=== PATIENT | male | born 1935 | race Caucasian/White ===

== ENCOUNTER 2018-01-08 14:33 | Observation (INO) | payer MEDICARE ==
[2018-01-08] MEDS ORDERED: Sodium Chloride 0.9% 1000 ML 1,000 ML IV STA ×2 (14:51→17:41)
--- NOTE | 2018-01-08 14:54 | ERPHSYRPT ---
- History of Present Illness Time Seen by Provider: 01/08/18 14:52 Source: patient Patient Subjective Stated Complaint: Patient states he started doing therapy at 1400 and was told by staff his blood pressure dropped. Triage Nursing Assessment: Patient brought into ER via therapy staff stating his b/p was low during his therapy session. Patient states he feels weak. Patient denies being lightheaded. Patient states he doesn't have much of an appepitie and hasn't ate in the past couple of days. Physician History: mild general weakness today during physical therapy, not dizzy, no pain, pt is ambulatory, fluent speech Allergies/Adverse Reactions: No Known Drug Allergies Allergy (Verified 12/20/17 10:56) Home Medications: Atorvastatin Calcium [Lipitor 20MG Tablet] 20 mg PO QHS 12/20/17 [History] Cholecalciferol (Vitamin D3) [Vitamin D3] 50,000 units PO WEEKLY 12/20/17 [ History] Ciprofloxacin HCl [Cipro] 500 mg PO BID 12/20/17 [History] Denosumab 60 mg [Prolia 60 mg Injection] 60 mg SQ Q6M 12/20/17 [History] Oxycodone HCl/Acetaminophen [Percocet 5-325 mg Tablet] 5 mg PO Q6H 12/20/17 [ History] Rivaroxaban 10 mg Tablet [Xarelto 10 mg Tablet] 10 mg PO DAILY 12/20/17 [ History] Sertraline HCl 50 mg [Zoloft 50 mg Tablet] 50 mg PO DAILY 12/20/17 [History] Hx Tetanus, Diphtheria Vaccination/Date Given: Yes Hx Influenza Vaccination/Date Given: Yes Hx Pneumococcal Vaccination/Date Given: No Immunizations Up to Date: Yes - Review of Systems Constitutional: No Fever Eyes: No Eye Redness Ears, Nose, & Throat: No Mouth Pain Respiratory: No Dyspnea Cardiac: No Chest Pain Abdominal/Gastrointestinal: No Abdominal Pain, No Vomiting Musculoskeletal: No Back Pain Neurological: No Dizziness, No Focal Weakness, No Speech Changes - Past Medical History Pertinent Past Medical History: No Neurological History: No Pertinent History ENT History: No Pertinent History Cardiac History: No Pertinent History, High Cholesterol Respiratory History: No Pertinent History Endocrine Medical History: No Pertinent History Musculoskeletal History: Fractures GI Medical History: No Pertinent History History: Other Psycho-Social History: Anxiety, Eating Disorders Male Reproductive Disorders: Prostate Cancer Other Medical History: radiation therapy for prostate cancer. - Past Surgical History Past Surgical History: Yes Neuro Surgical History: No Pertinent History Cardiac: No Pertinent History Respiratory: No Pertinent History Gastrointestinal: No Pertinent History Genitourinary: No Pertinent History Musculoskeletal: Orthopedic Surgery Male Surgical History: No Pertinent History Other Surgical History: hx of surgery on left wrist. Surgery on RLE for compund fracture. - Social History Smoking Status: Never smoker Exposure to second hand smoke: No Drug Use: none Patient Lives Alone: No - Nursing Vital Signs Nursing Vital Signs: Initial Vital Signs Temperature 97.1 F 01/08/18 14:39 Pulse Rate 83 01/08/18 14:39 Respiratory Rate 16 01/08/18 14:39 Blood Pressure 122/67 01/08/18 14:39 O2 Sat by Pulse Oximetry 100 01/08/18 14:39 Pain Scale Pain Intensity 0 - Physical Exam General Appearance: no apparent distress Eye Exam: PERRL/EOMI Ears, Nose, Throat Exam: moist mucous membranes Neck Exam: normal inspection Respiratory Exam: normal breath sounds Cardiovascular Exam: regular rate/rhythm Gastrointestinal/Abdomen Exam: soft, No tenderness Extremity Exam: pelvis stable Neurologic Exam: alert, oriented x 3, cooperative, normal mood/affect Skin Exam: warm, dry SpO2 Interpretation: normal SpO2: 100 Oxygen Delivery: Room Air - Course Nursing assessment & vital signs reviewed: Yes EKG Interpreted by Me: Other (nsr 78, rvh, no stemi) - Radiology Exams Chest X-ray Interpretation: Interpreted by me, No Pneumonia Ordered Tests: Active Orders 24 hr Category Date Time Status Shoemaking Finisher STAT Care 01/08/18 14:51 Active EKG-ER Only STAT Care 01/08/18 14:51 Active IV Insertion STAT Care 01/08/18 14:51 Active Orthostatic Vital Signs STAT Care 01/08/18 16:54 Active CHEST 1 VIEW (PORTABLE) Stat Exams 01/08/18 15:43 Completed LOWER EXTREMITY WO CONTRAST [CT] Stat Exams 01/08/18 17:44 Ordered BLOOD CULTURE Stat Lab 01/08/18 Received CBC W DIFF Stat Lab 01/08/18 15:28 Completed CMP Stat Lab 01/08/18 15:28 Completed CULTURE,URINE Stat Lab 01/08/18 16:51 Received Lactic Acid Stat Lab 01/08/18 16:30 Results Manual Differential NC Stat Lab 01/08/18 15:28 Completed TROPONIN Q3H Lab 01/08/18 15:28 Completed TROPONIN Q3H Lab 01/08/18 18:00 Ordered TROPONIN Q3H Lab 01/08/18 21:00 Ordered TROPONIN Q3H Lab 01/09/18 00:00 Ordered TROPONIN Q3H Lab 01/09/18 03:00 Ordered UA W/ MICROSCOPIC Stat Lab 01/08/18 16:51 Completed Transfer Order Routine Transfer 01/08/18 Ordered Medication Summary Generic Name Dose Route Start Last Admin Trade Name Freq PRN Reason Stop Dose Admin Sodium Chloride 1,000 mls @ 999 mls/hr 01/08/18 17:41 01/08/18 17:49 Sodium Chloride 0.9% 1000 Ml IV 01/08/18 18:41 999 mls/hr .Q1H1M STA Administration Vancomycin HCl 1 gm in 250 mls @ 167 mls/hr 01/08/18 17:42 01/08/18 17:55 Vancomycin 1gm/ Ns 250ml IV 01/08/18 19:11 167 mls/hr STAT ONE Administration Discontinued Medications Generic Name Dose Route Start Last Admin Trade Name Freq PRN Reason Stop Dose Admin Sodium Chloride 1,000 mls @ 999 mls/hr 01/08/18 14:51 01/08/18 15:35 Sodium Chloride 0.9% 1000 Ml IV 01/08/18 15:51 999 mls/hr .Q1H1M STA Administration Sodium Chloride Confirm 01/08/18 15:34 Sodium Chloride 0.9% 1000 Ml Administered 01/08/18 15:35 Dose 1,000 mls @ ud .ROUTE .STK-MED ONE Sodium Chloride Confirm 01/08/18 17:40 Sodium Chloride 0.9% 1000 Ml Administered 01/08/18 17:41 Dose 1,000 mls @ ud .ROUTE .STK-MED ONE Vancomycin HCl Confirm 01/08/18 17:54 Vancomycin 1gm/ Ns 250ml Administered 01/08/18 17:55 Dose 250 mls @ ud IV .STK-MED ONE Lab/Rad Data: Laboratory Result Diagrams 01/08/18 15:28 01/08/18 15:28 Laboratory Results 01/08/18 01/08/18 01/08/18 Range/Units 16:51 16:30 15:28 WBC (4.0-10.5) K/mm3 RBC (4.1-5.6) M/mm3 Hgb (12.5-18.0) gm/dl Hct (42-50) % MCV (78-100) fl MCH (26-32) pg MCHC (32-36) g/dl RDW (11.5-14.0) % Plt Count (150-450) K/mm3 MPV (6-9.5) fl Absolute Granulocytes (1.4-6.9) Segmented Neutrophils (36.-66.) % Band Neutrophils (0.0-2.0) % Lymphocytes (Manual) (24-44) % Monocytes (Manual) (0.0-12.0) % Hypochromia Toxic Granulation Platelet Estimate (NORMAL) RBC Morphology Poikilocytosis Anisocytosis Sodium (137-145) mmol/L Potassium (3.5-5.1) mmol/L Chloride (98-107) mmol/L Carbon Dioxide (22-30) mmol/L Anion Gap (5-15) MEQ/L BUN (9-20) mg/dL Creatinine (0.66-1.25) mg/dL Estimated GFR ML/MIN Glucose (74-106) mg/dL Lactic Acid 2.2 H (0.4-2.0) Calcium (8.4-10.2) mg/dL Total Bilirubin (0.2-1.3) mg/dL AST (17-59) U/L ALT (0-50) U/L Alkaline Phosphatase (38-126) U/L Troponin I < 0.012 (0.000-0.034) ng/mL Serum Total Protein (6.3-8.2) g/dL Albumin (3.5-5.0) g/dL Ur Collection Type CLEAN CATCH Urine Color YELLOW (YELLOW) Urine Appearance CLEAR (CLEAR) Urine pH 6.0 (5-6) Ur Specific [place] 1.020 (1.005-1.025) Urine Protein 30 (Negative) Urine Ketones SMALL (NEGATIVE) Urine Blood 250 (0-5) Rey/ul Urine Nitrite NEGATIVE (NEGATIVE) Urine Bilirubin NEGATIVE (NEGATIVE) Urine Urobilinogen NORMAL (0-1) mg/dL Ur Leukocyte Esterase NEGATIVE (NEGATIVE) Urine Microscopic RBC 15-25 (0-2) /HPF Urine Microscopic WBC 0-2 (0-5) /HPF Ur Epithelial Cells RARE (FEW) /HPF Urine Bacteria FEW (NEGATIVE) /HPF Hyaline Casts 0-2 (0-2) /LPF Urine Mucus MODERATE (NEGATIVE) /HPF Urine Culture Reflexed YES (NO) Urine Glucose NEGATIVE (NEGATIVE) mg/dL Specimen Received 01/08/18 1730 01/08/18 01/08/18 Range/Units 15:28 15:28 WBC 17.7 H (4.0-10.5) K/mm3 RBC 3.76 L (4.1-5.6) M/mm3 Hgb 10.1 L (12.5-18.0) gm/dl Hct 32.0 L (42-50) % MCV 85.1 (78-100) fl MCH 26.8 (26-32) pg MCHC 31.6 L (32-36) g/dl RDW 14.7 H (11.5-14.0) % Plt Count 500 H (150-450) K/mm3 MPV 9.3 (6-9.5) fl Absolute Granulocytes 14.66 H (1.4-6.9) Segmented Neutrophils 81 H (36.-66.) % Band Neutrophils 3 H (0.0-2.0) % Lymphocytes (Manual) 12 L (24-44) % Monocytes (Manual) 4 (0.0-12.0) % Hypochromia 1+ Toxic Granulation 2+ Platelet Estimate INCREASED (NORMAL) RBC Morphology ABNORMAL Poikilocytosis 1+ Anisocytosis 1+ Sodium 139 (137-145) mmol/L Potassium 3.4 L (3.5-5.1) mmol/L Chloride 102 (98-107) mmol/L Carbon Dioxide 25 (22-30) mmol/L Anion Gap 15.0 (5-15) MEQ/L BUN 15 (9-20) mg/dL Creatinine 0.67 (0.66-1.25) mg/dL Estimated GFR > 60.0 ML/MIN Glucose 103 (74-106) mg/dL Lactic Acid (0.4-2.0) Calcium 8.6 (8.4-10.2) mg/dL Total Bilirubin 0.30 (0.2-1.3) mg/dL AST 16 L (17-59) U/L ALT 12 (0-50) U/L Alkaline Phosphatase 88 (38-126) U/L Troponin I (0.000-0.034) ng/mL Serum Total Protein 6.5 (6.3-8.2) g/dL Albumin 3.3 L (3.5-5.0) g/dL Ur Collection Type Urine Color (YELLOW) Urine Appearance (CLEAR) Urine pH (5-6) Ur Specific [place] (1.005-1.025) Urine Protein (Negative) Urine Ketones (NEGATIVE) Urine Blood (0-5) Rey/ul Urine Nitrite (NEGATIVE) Urine Bilirubin (NEGATIVE) Urine Urobilinogen (0-1) mg/dL Ur Leukocyte Esterase (NEGATIVE) Urine Microscopic RBC (0-2) /HPF Urine Microscopic WBC (0-5) /HPF Ur Epithelial Cells (FEW) /HPF Urine Bacteria (NEGATIVE) /HPF Hyaline Casts (0-2) /LPF Urine Mucus (NEGATIVE) /HPF Urine Culture Reflexed (NO) Urine Glucose (NEGATIVE) mg/dL Specimen Received - Progress Progress: improved Discussed with : [place] Counseled pt/family regarding: lab results, diagnosis, rad results - Departure Time of Disposition: 18:22 Departure Disposition: Observation Clinical Impression: Dehydration Condition: Stable Critical Care Time: No Referrals: MARGY ROWAN MD [NON-STAFF PHY W/O PRIVILEGES] -
[2018-01-08 15:33] LABS: Granulocyte Absolute (ANC) 14.66 (1.4-6.9); Hemoglobin 10.1 gm/dl (12.5-18.0); Mean Cell Volume 85.1 fl (78-100); Mean Corpuscular Hgb Concent. 31.6 g/dl (32-36); Mean Platelet Volume 9.3 fl (6-9.5); Platelet Count 500 K/mm3 (150-450); Red Blood Count 3.76 M/mm3 (4.1-5.6); Red Cell Distribution Width 14.7 % (11.5-14.0); White Blood Count 17.7 K/mm3 (4.0-10.5)
[2018-01-08] MEDS ORDERED: Sodium Chloride 0.9% 1000 ML 1,000 ML ONE ×2 (15:34→17:40)
[2018-01-08 15:36] LABS: Mean Corpuscular Hemoglobin 26.8 pg (26-32)
[2018-01-08 15:56] LABS: ALBUMIN 3.3 g/dL (3.5-5.0); ALKALINE PHOSPHATASE 88 U/L (38-126); BLOOD UREA NITROGEN 15 mg/dL (9-20); CHLORIDE 102 mmol/L (98-107); Calcium 8.6 mg/dL (8.4-10.2); Carbon Dioxide 25 mmol/L (22-30); Creatinine 1 0.67 mg/dL (0.66-1.25); Glucose 103 mg/dL (74-106); Potassium 3.4 mmol/L (3.5-5.1); SGOT/AST 16 U/L (17-59); SGPT/ALT 12 U/L (0-50); SODIUM 139 mmol/L (137-145); Total Protein 6.5 g/dL (6.3-8.2)
[2018-01-08 16:24] LABS: BAND 3 % (0.0-2.0); Lymphocytes 12 % (24-44); Monocyte 4 % (0.0-12.0); Neutrophils 81 % (36.-66.); Total Cells Counted 100
[2018-01-08 16:25] LABS: ANISOCYTOSIS 1+; Hypochromia 1+; Platelet Estimate INCREASED (NORMAL); Poikilocytosis 1+; Toxic Granulation 2+
[2018-01-08 16:33] LABS: Lactic Acid 2.2 (0.4-2.0)
--- NOTE | 2018-01-08 16:41 | XRAY ---
Indication: Weakness. Comparison: None Portable chest is clear. Heart and mediastinal structures within normal limits. Bony thorax intact with minimal degenerative changes and minimal double curvature scoliosis. Impression: Nonacute chest.
[2018-01-08 17:32] LABS: Appearance CLEAR (CLEAR); Glucose NEGATIVE (NEGATIVE); Ketones SMALL (NEGATIVE); Leukocyte Esterase NEGATIVE (NEGATIVE); Nitrite NEGATIVE (NEGATIVE); Protein,Urine Dip 30 (Negative)
[2018-01-08 17:33] LABS: Bacteria FEW /HPF (NEGATIVE); Bilirubin NEGATIVE (NEGATIVE); Blood 250 Ery/ul (0-5); Epithelial Cells RARE /HPF (FEW); Hyaline Casts 0-2 /LPF (0-2); Mucus MODERATE /HPF (NEGATIVE); RBC 15-25 /HPF (0-2); Urobilinogen NORMAL mg/dL (0-1); WBC 0-2 /HPF (0-5)
[2018-01-08] MEDS ORDERED: Vancomycin 1GM/ Ns 250ML*** 1 GM/250 ML IVPB IV ONE (17:42)
[2018-01-08] MEDS ORDERED: Vancomycin 1GM/ Ns 250ML*** 250 ML IV ONE (17:54)
[2018-01-08] MEDS ORDERED: TYLENOL 325 MG PO PRN (19:40)
[2018-01-08] MEDS: Sodium Chloride 0.9% 1000 ML 1,000 ML IV SCH (20:38)
[2018-01-08] MEDS ORDERED: PERCOCET TABLET 5/325MG PO PRN (21:31)
[2018-01-08] MEDS ORDERED: ZOCOR 20MG PO SCH (22:00)
[2018-01-08] MEDS ORDERED: FEOSOL 325 MG PO SCH (22:00)
[2018-01-08] MEDS ORDERED: Ambien 5 MG Tablet PO SCH (22:00)
[2018-01-09 04:18] VITALS: PULSE 87
[2018-01-09 05:47] LABS: BASOPHIL % 0.2 % (0.0-0.4); Basophil (Absolute #) 0.02 (0-0.4); Eosinophil % 1.4 % (0.00-5.0); Eosinophil (Absolute #) 0.18 (0-0.5); Granulocyte Absolute (ANC) 9.95 (1.4-6.9); Granulocytes % 79.7 % (36.0-66.0); Hematocrit 24.9 % (42-50); Hemoglobin 7.9 gm/dl (12.5-18.0); Lymphocytes % 8.8 % (24.0-44.0); Mean Cell Volume 85.6 fl (78-100); Mean Corpuscular Hemoglobin 27.1 pg (26-32); Mean Corpuscular Hgb Concent. 31.7 g/dl (32-36); Mean Platelet Volume 9.7 fl (6-9.5); Monocyte (Absolute #) 1.24 (0.0-1.3); Monocytes % 9.9 % (0.0-12.0); Platelet Count 406 K/mm3 (150-450); Red Blood Count 2.91 M/mm3 (4.1-5.6); Red Cell Distribution Width 14.8 % (11.5-14.0); White Blood Count 12.5 K/mm3 (4.0-10.5)
[2018-01-09] MEDS: Sodium Chloride 0.9% 1000 ML 1,000 ML IV SCH (07:01)
[2018-01-09 07:11] VITALS: BP 80/42; O2SAT 97
--- NOTE | 2018-01-09 08:32 | PCM.SSS ---
History of Present Illness - Chief Complaint Chief Complaint: dehydration, leukocytosis History of Present Illness: is a 82 year old male who is recovering from a crush injury to his right lower leg. he was in therapy yesterday and developed low blood pressure and felt poorly. patient states his bp has ran low his whole life, he saw his surgeon the day before admission and had teresa removed and xrays and everything was normal. he feels great after IV fluid hydration overnight. had a leukocytosis on arrival but UA appears negative and chest xray are negative, ct RLE shows no abscess or osteomyelitis evidence etc. - Review of Systems Constitutional: No Fever, No Chills Respiratory: No Cough, No Short Of Breath Cardiac: No Chest Pain, No Edema, No Syncope Abdominal/Gastrointestinal: No Abdominal Pain, No Nausea, No Vomiting, No Diarrhea All Other Systems: Reviewed and Negative Medications & Allergies Home Medications: Home Medication List Atorvastatin Calcium [Lipitor 20MG Tablet] 20 mg PO QHS 12/20/17 [History Confirmed 01/08/18] Denosumab 60 mg [Prolia 60 mg Injection] 60 mg SQ Q6M 12/20/17 [History Confirmed 01/08/18] Oxycodone HCl/Acetaminophen [Percocet 5-325 mg Tablet] 5 mg PO Q6H 12/20/17 [ History Confirmed 01/08/18] Sertraline HCl 50 mg [Zoloft 50 mg Tablet] 50 mg PO DAILY 12/20/17 [History Confirmed 01/08/18] Aspirin EC 325 mg [Ecotrin 325 MG] 325 mg PO BID 01/08/18 [History Confirmed 01/08/18] Ferrous Sulfate 325 mg PO HS 01/08/18 [History Confirmed 01/08/18] Cephalexin Mh 500 mg [Keflex 500 mg] 500 mg PO TID #21 capsule 01/09/18 [Rx] Allergies/Adverse Reactions: Allergies Allergy/AdvReac Type Severity Reaction Status Date / Time No Known Drug Allergies Allergy Verified 12/20/17 10:56 - Past Medical History Past Medical History: No Neurological History: No Pertinent History ENT History: No Pertinent History Cardiac History: No Pertinent History, High Cholesterol Respiratory History: No Pertinent History Endocrine Medical History: No Pertinent History Musculoskelatal History: Fractures GI Medical History: No Pertinent History History: Other Pyscho-Social History: Anxiety, Eating Disorders Male Reproductive Disorders: Prostate Cancer Comment: radiation therapy for prostate cancer. - Past Surgical History Past Surgical History: Yes Neuro Surgical History: No Pertinent History Cardiac History: No Pertinent History Respiratory Surgery: No Pertinent History GI Surgical History: No Pertinent History Genitourinary Surgical Hx: No Pertinent History Musculskeletal Surgical Hx: Orthopedic Surgery Male Surgical History: No Pertinent History Other Surgical History: hx of surgery on left wrist. Surgery on RLE for compund fracture. - Social History Smoking Status: Never smoker Exposure to second hand smoke: Yes Alcohol: None Drug Use: none - Physical Exam Vital Signs: Vital Signs - 24 hr Temp Pulse Resp BP Pulse Ox 01/09/18 07:11 98.6 F 87 18 80/42 97 01/09/18 04:00 98.8 F 87 16 81/43 99 01/09/18 00:00 99.2 F 92 H 16 85/52 95 01/08/18 19:51 101.3 F 113 H 20 80/48 100 01/08/18 18:23 100 01/08/18 17:51 93 H 18 118/81 100 01/08/18 16:51 84 18 137/68 97 01/08/18 15:50 99 H 18 113/71 97 01/08/18 15:03 98.0 F 65 18 113/71 94 L 01/08/18 14:39 97.1 F 83 16 122/67 100 Oxygen-Last 24 hours O2 Percentage 2 Liters = 28% General Appearance: no apparent distress, alert Eye Exam: PERRL/EOMI, eyes nml inspection Respiratory Exam: normal breath sounds, lungs clear, No respiratory distress Cardiovascular Exam: regular rate/rhythm, normal heart sounds, normal peripheral pulses Gastrointestinal/Abdomen Exam: soft, normal bowel sounds, No tenderness, No mass Extremity Exam: normal inspection, normal range of motion, pelvis stable, other (right lower leg with well healing incision vertically oriented, no redness, no drainage, mild soft tissue swelling. no fluctuance) Results - Labs Lab/Micro Results: Lab Results-Last 24 Hours 01/08/18 01/08/18 01/08/18 Range/Units 15:28 15:28 15:28 WBC 17.7 H (4.0-10.5) K/mm3 RBC 3.76 L (4.1-5.6) M/mm3 Hgb 10.1 L (12.5-18.0) gm/dl Hct 32.0 L (42-50) % MCV 85.1 (78-100) fl MCH 26.8 (26-32) pg MCHC 31.6 L (32-36) g/dl RDW 14.7 H (11.5-14.0) % Plt Count 500 H (150-450) K/mm3 MPV 9.3 (6-9.5) fl Gran % (36.0-66.0) % Eos # (Auto) (0-0.5) Absolute Lymphs (auto) (1.0-4.6) Absolute Monos (auto) (0.0-1.3) Lymphocytes % (24.0-44.0) % Monocytes % (0.0-12.0) % Eosinophils % (0.00-5.0) % Basophils % (0.0-0.4) % Absolute Granulocytes 14.66 H (1.4-6.9) Segmented Neutrophils 81 H (36.-66.) % Band Neutrophils 3 H (0.0-2.0) % Lymphocytes (Manual) 12 L (24-44) % Monocytes (Manual) 4 (0.0-12.0) % Basophils # (0-0.4) Hypochromia 1+ Toxic Granulation 2+ Platelet Estimate INCREASED (NORMAL) RBC Morphology ABNORMAL Poikilocytosis 1+ Anisocytosis 1+ Sodium 139 (137-145) mmol/L Potassium 3.4 L (3.5-5.1) mmol/L Chloride 102 (98-107) mmol/L Carbon Dioxide 25 (22-30) mmol/L Anion Gap 15.0 (5-15) MEQ/L BUN 15 (9-20) mg/dL Creatinine 0.67 (0.66-1.25) mg/dL Estimated GFR > 60.0 ML/MIN Glucose 103 (74-106) mg/dL Lactic Acid (0.4-2.0) Calcium 8.6 (8.4-10.2) mg/dL Total Bilirubin 0.30 (0.2-1.3) mg/dL AST 16 L (17-59) U/L ALT 12 (0-50) U/L Alkaline Phosphatase 88 (38-126) U/L Troponin I < 0.012 (0.000-0.034) ng/mL Serum Total Protein 6.5 (6.3-8.2) g/dL Albumin 3.3 L (3.5-5.0) g/dL Ur Collection Type Urine Color (YELLOW) Urine Appearance (CLEAR) Urine pH (5-6) Ur Specific [place] (1.005-1.025) Urine Protein (Negative) Urine Ketones (NEGATIVE) Urine Blood (0-5) Rey/ul Urine Nitrite (NEGATIVE) Urine Bilirubin (NEGATIVE) Urine Urobilinogen (0-1) mg/dL Ur Leukocyte Esterase (NEGATIVE) Urine Microscopic RBC (0-2) /HPF Urine Microscopic WBC (0-5) /HPF Ur Epithelial Cells (FEW) /HPF Urine Bacteria (NEGATIVE) /HPF Hyaline Casts (0-2) /LPF Urine Mucus (NEGATIVE) /HPF Urine Culture Reflexed (NO) Urine Glucose (NEGATIVE) mg/dL Specimen Received 01/08/18 01/08/18 01/08/18 Range/Units 16:30 16:51 20:16 WBC (4.0-10.5) K/mm3 RBC (4.1-5.6) M/mm3 Hgb (12.5-18.0) gm/dl Hct (42-50) % MCV (78-100) fl MCH (26-32) pg MCHC (32-36) g/dl RDW (11.5-14.0) % Plt Count (150-450) K/mm3 MPV (6-9.5) fl Gran % (36.0-66.0) % Eos # (Auto) (0-0.5) Absolute Lymphs (auto) (1.0-4.6) Absolute Monos (auto) (0.0-1.3) Lymphocytes % (24.0-44.0) % Monocytes % (0.0-12.0) % Eosinophils % (0.00-5.0) % Basophils % (0.0-0.4) % Absolute Granulocytes (1.4-6.9) Segmented Neutrophils (36.-66.) % Band Neutrophils (0.0-2.0) % Lymphocytes (Manual) (24-44) % Monocytes (Manual) (0.0-12.0) % Basophils # (0-0.4) Hypochromia Toxic Granulation Platelet Estimate (NORMAL) RBC Morphology Poikilocytosis Anisocytosis Sodium (137-145) mmol/L Potassium (3.5-5.1) mmol/L Chloride (98-107) mmol/L Carbon Dioxide (22-30) mmol/L Anion Gap (5-15) MEQ/L BUN (9-20) mg/dL Creatinine (0.66-1.25) mg/dL Estimated GFR ML/MIN Glucose (74-106) mg/dL Lactic Acid 2.2 H (0.4-2.0) Calcium (8.4-10.2) mg/dL Total Bilirubin (0.2-1.3) mg/dL AST (17-59) U/L ALT (0-50) U/L Alkaline Phosphatase (38-126) U/L Troponin I < 0.012 (0.000-0.034) ng/mL Serum Total Protein (6.3-8.2) g/dL Albumin (3.5-5.0) g/dL Ur Collection Type CLEAN CATCH Urine Color YELLOW (YELLOW) Urine Appearance CLEAR (CLEAR) Urine pH 6.0 (5-6) Ur Specific [place] 1.020 (1.005-1.025) Urine Protein 30 (Negative) Urine Ketones SMALL (NEGATIVE) Urine Blood 250 (0-5) Rey/ul Urine Nitrite NEGATIVE (NEGATIVE) Urine Bilirubin NEGATIVE (NEGATIVE) Urine Urobilinogen NORMAL (0-1) mg/dL Ur Leukocyte Esterase NEGATIVE (NEGATIVE) Urine Microscopic RBC 15-25 (0-2) /HPF Urine Microscopic WBC 0-2 (0-5) /HPF Ur Epithelial Cells RARE (FEW) /HPF Urine Bacteria FEW (NEGATIVE) /HPF Hyaline Casts 0-2 (0-2) /LPF Urine Mucus MODERATE (NEGATIVE) /HPF Urine Culture Reflexed YES (NO) Urine Glucose NEGATIVE (NEGATIVE) mg/dL Specimen Received 01/08/18 1730 01/08/18 01/09/18 01/09/18 Range/Units 20:21 00:16 00:31 WBC (4.0-10.5) K/mm3 RBC (4.1-5.6) M/mm3 Hgb (12.5-18.0) gm/dl Hct (42-50) % MCV (78-100) fl MCH (26-32) pg MCHC (32-36) g/dl RDW (11.5-14.0) % Plt Count (150-450) K/mm3 MPV (6-9.5) fl Gran % (36.0-66.0) % Eos # (Auto) (0-0.5) Absolute Lymphs (auto) (1.0-4.6) Absolute Monos (auto) (0.0-1.3) Lymphocytes % (24.0-44.0) % Monocytes % (0.0-12.0) % Eosinophils % (0.00-5.0) % Basophils % (0.0-0.4) % Absolute Granulocytes (1.4-6.9) Segmented Neutrophils (36.-66.) % Band Neutrophils (0.0-2.0) % Lymphocytes (Manual) (24-44) % Monocytes (Manual) (0.0-12.0) % Basophils # (0-0.4) Hypochromia Toxic Granulation Platelet Estimate (NORMAL) RBC Morphology Poikilocytosis Anisocytosis Sodium (137-145) mmol/L Potassium (3.5-5.1) mmol/L Chloride (98-107) mmol/L Carbon Dioxide (22-30) mmol/L Anion Gap (5-15) MEQ/L BUN (9-20) mg/dL Creatinine (0.66-1.25) mg/dL Estimated GFR ML/MIN Glucose (74-106) mg/dL Lactic Acid 3.0 H 0.8 (0.4-2.0) Calcium (8.4-10.2) mg/dL Total Bilirubin (0.2-1.3) mg/dL AST (17-59) U/L ALT (0-50) U/L Alkaline Phosphatase (38-126) U/L Troponin I 0.024 (0.000-0.034) ng/mL Serum Total Protein (6.3-8.2) g/dL Albumin (3.5-5.0) g/dL Ur Collection Type Urine Color (YELLOW) Urine Appearance (CLEAR) Urine pH (5-6) Ur Specific [place] (1.005-1.025) Urine Protein (Negative) Urine Ketones (NEGATIVE) Urine Blood (0-5) Rey/ul Urine Nitrite (NEGATIVE) Urine Bilirubin (NEGATIVE) Urine Urobilinogen (0-1) mg/dL Ur Leukocyte Esterase (NEGATIVE) Urine Microscopic RBC (0-2) /HPF Urine Microscopic WBC (0-5) /HPF Ur Epithelial Cells (FEW) /HPF Urine Bacteria (NEGATIVE) /HPF Hyaline Casts (0-2) /LPF Urine Mucus (NEGATIVE) /HPF Urine Culture Reflexed (NO) Urine Glucose (NEGATIVE) mg/dL Specimen Received 01/09/18 01/09/18 01/09/18 Range/Units 04:00 04:01 04:01 WBC 12.5 H (4.0-10.5) K/mm3 RBC 2.91 L (4.1-5.6) M/mm3 Hgb 7.9 L (12.5-18.0) gm/dl Hct 24.9 L (42-50) % MCV 85.6 (78-100) fl MCH 27.1 (26-32) pg MCHC 31.7 L (32-36) g/dl RDW 14.8 H (11.5-14.0) % Plt Count 406 (150-450) K/mm3 MPV 9.7 H (6-9.5) fl Gran % 79.7 H (36.0-66.0) % Eos # (Auto) 0.18 (0-0.5) Absolute Lymphs (auto) 1.10 (1.0-4.6) Absolute Monos (auto) 1.24 (0.0-1.3) Lymphocytes % 8.8 L (24.0-44.0) % Monocytes % 9.9 (0.0-12.0) % Eosinophils % 1.4 (0.00-5.0) % Basophils % 0.2 (0.0-0.4) % Absolute Granulocytes 9.95 H (1.4-6.9) Segmented Neutrophils (36.-66.) % Band Neutrophils (0.0-2.0) % Lymphocytes (Manual) (24-44) % Monocytes (Manual) (0.0-12.0) % Basophils # 0.02 (0-0.4) Hypochromia Toxic Granulation Platelet Estimate (NORMAL) RBC Morphology Poikilocytosis Anisocytosis Sodium (137-145) mmol/L Potassium (3.5-5.1) mmol/L Chloride (98-107) mmol/L Carbon Dioxide (22-30) mmol/L Anion Gap (5-15) MEQ/L BUN (9-20) mg/dL Creatinine (0.66-1.25) mg/dL Estimated GFR ML/MIN Glucose (74-106) mg/dL Lactic Acid 0.8 (0.4-2.0) Calcium (8.4-10.2) mg/dL Total Bilirubin (0.2-1.3) mg/dL AST (17-59) U/L ALT (0-50) U/L Alkaline Phosphatase (38-126) U/L Troponin I 0.020 (0.000-0.034) ng/mL Serum Total Protein (6.3-8.2) g/dL Albumin (3.5-5.0) g/dL Ur Collection Type Urine Color (YELLOW) Urine Appearance (CLEAR) Urine pH (5-6) Ur Specific [place] (1.005-1.025) Urine Protein (Negative) Urine Ketones (NEGATIVE) Urine Blood (0-5) Rey/ul Urine Nitrite (NEGATIVE) Urine Bilirubin (NEGATIVE) Urine Urobilinogen (0-1) mg/dL Ur Leukocyte Esterase (NEGATIVE) Urine Microscopic RBC (0-2) /HPF Urine Microscopic WBC (0-5) /HPF Ur Epithelial Cells (FEW) /HPF Urine Bacteria (NEGATIVE) /HPF Hyaline Casts (0-2) /LPF Urine Mucus (NEGATIVE) /HPF Urine Culture Reflexed (NO) Urine Glucose (NEGATIVE) mg/dL Specimen Received - Radiology Impressions Radiology Exams & Impressions: Radiology Procedures Category Date Time Status CHEST 1 VIEW (PORTABLE) Stat Exams 01/08/18 15:43 Completed LOWER EXTREMITY WO CONTRAST [CT] Stat Exams 01/08/18 17:44 Taken Assessment/Plan (1) Dehydration Current Visit: Yes Status: Acute Assessment & Plan: patient hydrated, stable today. states his bp has been low his whole life and he is asymptomatic at this time. Code(s): E86.0 - DEHYDRATION (2) Hypotension Current Visit: Yes Status: Acute Code(s): I95.9 - HYPOTENSION, UNSPECIFIED (3) Leukocytosis Current Visit: Yes Status: Acute Assessment & Plan: will d/c to home with po keflex, no obvious explanation on history or exam but has been covered with abx and wbc improved, no fever this am Code(s): D72.829 - ELEVATED WHITE BLOOD CELL COUNT, UNSPECIFIED Hospital Summary - Vitals & Intake/Output Vital Signs: Vital Signs Temperature 98.6 F 01/09/18 07:11 Pulse Rate 87 01/09/18 07:11 Respiratory Rate 18 01/09/18 07:11 Blood Pressure 80/42 01/09/18 07:11 O2 Sat by Pulse Oximetry 97 01/09/18 07:11 Oxygen-Last Documented O2 Percentage 2 Liters = 28% Intake & Output: Intake & Output 01/06/18 01/07/18 01/08/18 01/09/18 11:59 11:59 11:59 11:59 Intake Total 540 Balance 540 Weight 60 kg - Lab Result Diagrams: 01/09/18 04:01 01/08/18 15:28 Lab Results-Last 24 Hrs: Lab Results-Last 24 Hours 01/08/18 01/08/18 01/08/18 Range/Units 15:28 15:28 15:28 WBC 17.7 H (4.0-10.5) K/mm3 RBC 3.76 L (4.1-5.6) M/mm3 Hgb 10.1 L (12.5-18.0) gm/dl Hct 32.0 L (42-50) % MCV 85.1 (78-100) fl MCH 26.8 (26-32) pg MCHC 31.6 L (32-36) g/dl RDW 14.7 H (11.5-14.0) % Plt Count 500 H (150-450) K/mm3 MPV 9.3 (6-9.5) fl Gran % (36.0-66.0) % Eos # (Auto) (0-0.5) Absolute Lymphs (auto) (1.0-4.6) Absolute Monos (auto) (0.0-1.3) Lymphocytes % (24.0-44.0) % Monocytes % (0.0-12.0) % Eosinophils % (0.00-5.0) % Basophils % (0.0-0.4) % Absolute Granulocytes 14.66 H (1.4-6.9) Segmented Neutrophils 81 H (36.-66.) % Band Neutrophils 3 H (0.0-2.0) % Lymphocytes (Manual) 12 L (24-44) % Monocytes (Manual) 4 (0.0-12.0) % Basophils # (0-0.4) Hypochromia 1+ Toxic Granulation 2+ Platelet Estimate INCREASED (NORMAL) RBC Morphology ABNORMAL Poikilocytosis 1+ Anisocytosis 1+ Sodium 139 (137-145) mmol/L Potassium 3.4 L (3.5-5.1) mmol/L Chloride 102 (98-107) mmol/L Carbon Dioxide 25 (22-30) mmol/L Anion Gap 15.0 (5-15) MEQ/L BUN 15 (9-20) mg/dL Creatinine 0.67 (0.66-1.25) mg/dL Estimated GFR > 60.0 ML/MIN Glucose 103 (74-106) mg/dL Lactic Acid (0.4-2.0) Calcium 8.6 (8.4-10.2) mg/dL Total Bilirubin 0.30 (0.2-1.3) mg/dL AST 16 L (17-59) U/L ALT 12 (0-50) U/L Alkaline Phosphatase 88 (38-126) U/L Troponin I < 0.012 (0.000-0.034) ng/mL Serum Total Protein 6.5 (6.3-8.2) g/dL Albumin 3.3 L (3.5-5.0) g/dL Ur Collection Type Urine Color (YELLOW) Urine Appearance (CLEAR) Urine pH (5-6) Ur Specific [place] (1.005-1.025) Urine Protein (Negative) Urine Ketones (NEGATIVE) Urine Blood (0-5) Rey/ul Urine Nitrite (NEGATIVE) Urine Bilirubin (NEGATIVE) Urine Urobilinogen (0-1) mg/dL Ur Leukocyte Esterase (NEGATIVE) Urine Microscopic RBC (0-2) /HPF Urine Microscopic WBC (0-5) /HPF Ur Epithelial Cells (FEW) /HPF Urine Bacteria (NEGATIVE) /HPF Hyaline Casts (0-2) /LPF Urine Mucus (NEGATIVE) /HPF Urine Culture Reflexed (NO) Urine Glucose (NEGATIVE) mg/dL Specimen Received 01/08/18 01/08/18 01/08/18 Range/Units 16:30 16:51 20:16 WBC (4.0-10.5) K/mm3 RBC (4.1-5.6) M/mm3 Hgb (12.5-18.0) gm/dl Hct (42-50) % MCV (78-100) fl MCH (26-32) pg MCHC (32-36) g/dl RDW (11.5-14.0) % Plt Count (150-450) K/mm3 MPV (6-9.5) fl Gran % (36.0-66.0) % Eos # (Auto) (0-0.5) Absolute Lymphs (auto) (1.0-4.6) Absolute Monos (auto) (0.0-1.3) Lymphocytes % (24.0-44.0) % Monocytes % (0.0-12.0) % Eosinophils % (0.00-5.0) % Basophils % (0.0-0.4) % Absolute Granulocytes (1.4-6.9) Segmented Neutrophils (36.-66.) % Band Neutrophils (0.0-2.0) % Lymphocytes (Manual) (24-44) % Monocytes (Manual) (0.0-12.0) % Basophils # (0-0.4) Hypochromia Toxic Granulation Platelet Estimate (NORMAL) RBC Morphology Poikilocytosis Anisocytosis Sodium (137-145) mmol/L Potassium (3.5-5.1) mmol/L Chloride (98-107) mmol/L Carbon Dioxide (22-30) mmol/L Anion Gap (5-15) MEQ/L BUN (9-20) mg/dL Creatinine (0.66-1.25) mg/dL Estimated GFR ML/MIN Glucose (74-106) mg/dL Lactic Acid 2.2 H (0.4-2.0) Calcium (8.4-10.2) mg/dL Total Bilirubin (0.2-1.3) mg/dL AST (17-59) U/L ALT (0-50) U/L Alkaline Phosphatase (38-126) U/L Troponin I < 0.012 (0.000-0.034) ng/mL Serum Total Protein (6.3-8.2) g/dL Albumin (3.5-5.0) g/dL Ur Collection Type CLEAN CATCH Urine Color YELLOW (YELLOW) Urine Appearance CLEAR (CLEAR) Urine pH 6.0 (5-6) Ur Specific [place] 1.020 (1.005-1.025) Urine Protein 30 (Negative) Urine Ketones SMALL (NEGATIVE) Urine Blood 250 (0-5) Rey/ul Urine Nitrite NEGATIVE (NEGATIVE) Urine Bilirubin NEGATIVE (NEGATIVE) Urine Urobilinogen NORMAL (0-1) mg/dL Ur Leukocyte Esterase NEGATIVE (NEGATIVE) Urine Microscopic RBC 15-25 (0-2) /HPF Urine Microscopic WBC 0-2 (0-5) /HPF Ur Epithelial Cells RARE (FEW) /HPF Urine Bacteria FEW (NEGATIVE) /HPF Hyaline Casts 0-2 (0-2) /LPF Urine Mucus MODERATE (NEGATIVE) /HPF Urine Culture Reflexed YES (NO) Urine Glucose NEGATIVE (NEGATIVE) mg/dL Specimen Received 01/08/18 1730 01/08/18 01/09/18 01/09/18 Range/Units 20:21 00:16 00:31 WBC (4.0-10.5) K/mm3 RBC (4.1-5.6) M/mm3 Hgb (12.5-18.0) gm/dl Hct (42-50) % MCV (78-100) fl MCH (26-32) pg MCHC (32-36) g/dl RDW (11.5-14.0) % Plt Count (150-450) K/mm3 MPV (6-9.5) fl Gran % (36.0-66.0) % Eos # (Auto) (0-0.5) Absolute Lymphs (auto) (1.0-4.6) Absolute Monos (auto) (0.0-1.3) Lymphocytes % (24.0-44.0) % Monocytes % (0.0-12.0) % Eosinophils % (0.00-5.0) % Basophils % (0.0-0.4) % Absolute Granulocytes (1.4-6.9) Segmented Neutrophils (36.-66.) % Band Neutrophils (0.0-2.0) % Lymphocytes (Manual) (24-44) % Monocytes (Manual) (0.0-12.0) % Basophils # (0-0.4) Hypochromia Toxic Granulation Platelet Estimate (NORMAL) RBC Morphology Poikilocytosis Anisocytosis Sodium (137-145) mmol/L Potassium (3.5-5.1) mmol/L Chloride (98-107) mmol/L Carbon Dioxide (22-30) mmol/L Anion Gap (5-15) MEQ/L BUN (9-20) mg/dL Creatinine (0.66-1.25) mg/dL Estimated GFR ML/MIN Glucose (74-106) mg/dL Lactic Acid 3.0 H 0.8 (0.4-2.0) Calcium (8.4-10.2) mg/dL Total Bilirubin (0.2-1.3) mg/dL AST (17-59) U/L ALT (0-50) U/L Alkaline Phosphatase (38-126) U/L Troponin I 0.024 (0.000-0.034) ng/mL Serum Total Protein (6.3-8.2) g/dL Albumin (3.5-5.0) g/dL Ur Collection Type Urine Color (YELLOW) Urine Appearance (CLEAR) Urine pH (5-6) Ur Specific [place] (1.005-1.025) Urine Protein (Negative) Urine Ketones (NEGATIVE) Urine Blood (0-5) Rey/ul Urine Nitrite (NEGATIVE) Urine Bilirubin (NEGATIVE) Urine Urobilinogen (0-1) mg/dL Ur Leukocyte Esterase (NEGATIVE) Urine Microscopic RBC (0-2) /HPF Urine Microscopic WBC (0-5) /HPF Ur Epithelial Cells (FEW) /HPF Urine Bacteria (NEGATIVE) /HPF Hyaline Casts (0-2) /LPF Urine Mucus (NEGATIVE) /HPF Urine Culture Reflexed (NO) Urine Glucose (NEGATIVE) mg/dL Specimen Received 01/09/18 01/09/18 01/09/18 Range/Units 04:00 04:01 04:01 WBC 12.5 H (4.0-10.5) K/mm3 RBC 2.91 L (4.1-5.6) M/mm3 Hgb 7.9 L (12.5-18.0) gm/dl Hct 24.9 L (42-50) % MCV 85.6 (78-100) fl MCH 27.1 (26-32) pg MCHC 31.7 L (32-36) g/dl RDW 14.8 H (11.5-14.0) % Plt Count 406 (150-450) K/mm3 MPV 9.7 H (6-9.5) fl Gran % 79.7 H (36.0-66.0) % Eos # (Auto) 0.18 (0-0.5) Absolute Lymphs (auto) 1.10 (1.0-4.6) Absolute Monos (auto) 1.24 (0.0-1.3) Lymphocytes % 8.8 L (24.0-44.0) % Monocytes % 9.9 (0.0-12.0) % Eosinophils % 1.4 (0.00-5.0) % Basophils % 0.2 (0.0-0.4) % Absolute Granulocytes 9.95 H (1.4-6.9) Segmented Neutrophils (36.-66.) % Band Neutrophils (0.0-2.0) % Lymphocytes (Manual) (24-44) % Monocytes (Manual) (0.0-12.0) % Basophils # 0.02 (0-0.4) Hypochromia Toxic Granulation Platelet Estimate (NORMAL) RBC Morphology Poikilocytosis Anisocytosis Sodium (137-145) mmol/L Potassium (3.5-5.1) mmol/L Chloride (98-107) mmol/L Carbon Dioxide (22-30) mmol/L Anion Gap (5-15) MEQ/L BUN (9-20) mg/dL Creatinine (0.66-1.25) mg/dL Estimated GFR ML/MIN Glucose (74-106) mg/dL Lactic Acid 0.8 (0.4-2.0) Calcium (8.4-10.2) mg/dL Total Bilirubin (0.2-1.3) mg/dL AST (17-59) U/L ALT (0-50) U/L Alkaline Phosphatase (38-126) U/L Troponin I 0.020 (0.000-0.034) ng/mL Serum Total Protein (6.3-8.2) g/dL Albumin (3.5-5.0) g/dL Ur Collection Type Urine Color (YELLOW) Urine Appearance (CLEAR) Urine pH (5-6) Ur Specific [place] (1.005-1.025) Urine Protein (Negative) Urine Ketones (NEGATIVE) Urine Blood (0-5) Rey/ul Urine Nitrite (NEGATIVE) Urine Bilirubin (NEGATIVE) Urine Urobilinogen (0-1) mg/dL Ur Leukocyte Esterase (NEGATIVE) Urine Microscopic RBC (0-2) /HPF Urine Microscopic WBC (0-5) /HPF Ur Epithelial Cells (FEW) /HPF Urine Bacteria (NEGATIVE) /HPF Hyaline Casts (0-2) /LPF Urine Mucus (NEGATIVE) /HPF Urine Culture Reflexed (NO) Urine Glucose (NEGATIVE) mg/dL Specimen Received - Radiology Exams Ordered Rad Exams-Entire Visit: Radiology Procedures Category Date Time Status CHEST 1 VIEW (PORTABLE) Stat Exams 01/08/18 15:43 Completed LOWER EXTREMITY WO CONTRAST [CT] Stat Exams 01/08/18 17:44 Taken - Discharge Disposition: Home, Self-Care Condition: Stable Prescriptions: New Cephalexin Mh 500 mg [Keflex 500 mg] 500 mg PO TID #21 capsule Continue Sertraline HCl 50 mg [Zoloft 50 mg Tablet] 50 mg PO DAILY Oxycodone HCl/Acetaminophen [Percocet 5-325 mg Tablet] 5 mg PO Q6H Denosumab 60 mg [Prolia 60 mg Injection] 60 mg SQ Q6M Atorvastatin Calcium [Lipitor 20MG Tablet] 20 mg PO QHS Aspirin EC 325 mg [Ecotrin 325 MG] 325 mg PO BID Ferrous Sulfate 325 mg PO HS Follow up with: HELENA ROWAN [Primary Care Provider] - 1 Week
--- NOTE | 2018-01-09 08:57 | XRAY ---
Indication: Mid leg wound. Possible infection. Low blood pressure. Multiple contiguous axial images obtained through the entire right lower leg. Two-dimensional sagittal and coronal reformatted images obtained. Cutaneous markers placed over the region of wound. Comparison: None There is comminuted fracture involving the mid to proximal tibial shaft with bone grafts and intact intramedullary axel and proximal/distal screws with grossly anatomic apposition/alignment. Hardware produces beam artifact limiting exam. Multiple displaced posterior and lateral cortical fracture fragments. No suspicious bony lesions or osseous destructive process. Cutaneous BBs are seen anteromedially with underlying cutaneous/subcutaneous soft tissue swelling/induration. No obvious walled off fluid collection or subcutaneous emphysema on this noncontrast exam. Minimal scattered vascular calcifications. Partially visualized small Goyal's cyst partially wrapping around the proximal medial head of the gastrocnemius measuring 2.2 x 0.8 cm in axial dimension. Knee articulation intact with minimal anterior/posterior heterotopic ossifications. Impression: 1. Tibial shaft fracture with bone grafts and intact orthopedic hardware. Hardware produces beam artifact limiting exam. No suspicious bony lesions or osseous destructive process. Comparison studies would be of benefit. 2. Anterior soft tissue swelling/induration. Findings may be posttraumatic/postsurgical inflammation. Infectious process not completely excluded in the right clinical setting. 3. Incidental small Goyal's cyst, and knee heterotopic ossifications. CT DI 37.17
[2018-01-09] MEDS ORDERED: ZOLOFT 50 MG TABLET PO SCH (10:00)
[2018-01-09] MEDS ORDERED: Ecotrin 325 MG PO SCH (22:00)
== END 2018-01-09 09:40 | disposition home or self-care (01) ==
LOC: ED 14:33 → MED SURG 19:38
PROVIDERS: ADMIT Family Medicine; ATTEND Family Medicine
DX: E86.0 Dehydration (principal); I95.9 Hypotension, unspecified; D72.829 Elevated white blood cell count, unspecified; F41.9 Anxiety disorder, unspecified; Z85.46 Personal history of malignant neoplasm of prostate; Z79.899 Other long term (current) drug therapy
CPT/HCPCS: 36415; 71045; 73700; 80053; 81000; 83605; 84484; 85025; 87040; 87086; 93005; 93041; 96360; 96361; 96365; 99285; G0378; J3370; A9270-GY